=== PATIENT | male | born 1965 | race African-American/Black ===

== ENCOUNTER → 2017-01-01 | Outpatient (CLI) | payer MEDICAID ==
[~2017-01-01] MED LIST: ASPI325T4 PO; CLIN300C3 PO; FOLI-17 PO; HYDR-3307 PO; LOPE1LIQ6 PO; OXYC15TA PO; SENN1TAB7 PO; THIA100T6 PO; TRAZ50TA18; [UNRECOGNIZED DRUG - OTHER]
== END | disposition home or self-care (01) ==
LOC: RAD 09:32
PROVIDERS: ATTEND Internal Medicine Infectious Disease
DX: R05 Cough (principal)
CPT/HCPCS: 71020

== ENCOUNTER 2017-02-20 06:16 | Emergency (ER) | payer MEDICAID ==
[~2017-02-20] VITALS: Ht 190.5 cm; Wt 67.7 kg
[2017-02-20] MEDS ORDERED: KETOROLAC 30 MG/1 ML IM ONE (07:00)
[2017-02-20] MEDS ORDERED: KETOROLAC 30 MG/1 ML ONE (07:20)
[2017-02-20 08:16] VITALS: BP 125/80
== END 2017-02-20 08:18 | disposition home or self-care (01) ==
LOC: ED 07:00
DX: S22.31XA Fracture of one rib, right side, initial encounter for closed fracture (principal); J20.8 Acute bronchitis due to other specified organisms; B96.89 Other specified bacterial agents as the cause of diseases classified elsewhere; W19.XXXA Unspecified fall, initial encounter; Y93.89 Activity, other specified; Y92.89 Other specified places as the place of occurrence of the external cause; Y99.9 Unspecified external cause status
CPT/HCPCS: 71020; 71101; 96372; 99284; J1885

== ENCOUNTER 2019-03-13 07:47 | Emergency (ER) | payer MEDICAID ==
[~2019-03-13] VITALS: Ht 190.5 cm; Wt 60.2 kg
[~2019-03-13 07:47] MED LIST changes: +ASPI325T17 PO; -ASPI325T4 PO; +SENN-177 PO; -SENN1TAB7 PO; -THIA100T6 PO; +THIA100T67 PO; -TRAZ50TA18; +TRAZ50TA66
[2019-03-13] MEDS ORDERED: SODIUM CHLORIDE 0.9% 1,000 ML IV ONE (08:25)
[2019-03-13] MEDS ORDERED: SODIUM CHLORIDE FLUSH 10ML SYR IVF ONE (08:30)
[2019-03-13] MEDS ORDERED: ONDANSETRON 2MG/ML, 2ML IVPush ONE (08:30)
[2019-03-13] MEDS ORDERED: SODIUM CHLORIDE 0.9% 1,000ML IVBOLUS ONE (08:30)
[2019-03-13] MEDS ORDERED: ONDANSETRON 2MG/ML, 2ML ONE (08:44)
--- NOTE | 2019-03-13 09:10 | NUR ---
assumed acre of pt. report from tiffanie MCGREGOR. pt here for chronic N/V/D. pt has recently complted a course of PO vancomycin but reports that sx persist. previous R has attempted IV without success. pt mildly agitated. resting in position of comfort.
--- NOTE | 2019-03-13 09:13 | NUR ---
Pt presents to ED for diarrhea and worsening abd pain. states symptoms present x 1 month. Pt states he was recently dx with c diff. Iso contact plus precautions in place. Report to Kasey MCGREGOR.
--- NOTE | 2019-03-13 09:30 | NUR ---
Iv fluids infusing. pt positioning and warm blankets given for comfort. pt aware that urine and stool sample needed. instruction given regarding sample collection. pt verbalized understanding.
[2019-03-13 09:43] LABS: BASOPHILS # (AUTO) 0.03 x10^3/uL (0-0.1); BASOPHILS % (AUTO) 1 % (0-1); EOSINOPHILS # (AUTO) 0.03 x10^3/uL (0-0.4); EOSINOPHILS % (AUTO) 1 % (1-7); LYMPHOCYTES # (AUTO) 1.19 x10^3/uL (1-3.4); LYMPHOCYTES % (AUTO) 31 % (22-44); MD NO; MEAN CORPUSCULAR HEMOGLOBIN 29.6 pg (27.5-34.5); MEAN CORPUSCULAR HGB CONC 32.3 g/dL (33.2-36.2); MEAN CORPUSCULAR VOLUME 91.6 fL (81-97); MEAN PLATELET VOLUME 8.4 fL (7.4-10.4); MONOCYTES # (AUTO) 0.36 x10^3/uL (0.2-0.8); MONOCYTES % (AUTO) 9 % (2-9); NEUTROPHILS # (AUTO) 2.24 x10^3/uL (1.8-6.8); NEUTROPHILS % (AUTO) 58 % (42-75); PLATELET COUNT 147 x10^3/uL (130-400); RED BLOOD COUNT 4.96 x10^6/uL (4.38-5.82); RED CELL DISTRIBUTION WIDTH 12.3 % (9.4-14.8)
[2019-03-13] MEDS ORDERED: RANI150C PO (09:43)
[2019-03-13] MEDS ORDERED: ACID1TAB7 PO (09:43)
[2019-03-13 09:52] LABS: ALANINE AMINOTRANSFERASE 21 U/L (12-78); ALBUMIN 4.9 g/dL (3.4-5.0); ANION GAP 9 mmol/L (5-15); CALCIUM 9.7 mg/dL (8.5-10.1); CHLORIDE 103 mmol/L (98-107); CREATININE 0.81 mg/dL (0.7-1.3)
[2019-03-13 09:54] LABS: ALKALINE PHOSPHATASE 98 U/L (45-117); BILIRUBIN,TOTAL 0.8 mg/dL (0.2-1.0); TOTAL PROTEIN 9.2 g/dL (6.4-8.2)
--- NOTE | 2019-03-13 10:04 | NUR ---
at bedside for recheck
--- NOTE | 2019-03-13 10:15 | NUR ---
pt to be D/C after completion of IV fluid infusion. pt updated on POC
[2019-03-13 10:17] LABS: ACETONE, SERUM Negative (Negative)
[2019-03-13 11:19] VITALS: BP 111/64
== END 2019-03-13 11:31 | disposition home or self-care (01) ==
LOC: ED 10:03
DX: R19.7 Diarrhea, unspecified (principal); R10.84 Generalized abdominal pain
CPT/HCPCS: 36415; 74022; 80053; 82010; 83690; 85025; 96361; 96374; 99284; J2405; J7030

== ENCOUNTER 2019-06-24 08:14 | Emergency (ER) | payer MEDICAID ==
[~2019-06-24] VITALS: Ht 190.5 cm; Wt 65.8 kg
[~2019-06-24 08:14] MED LIST changes: +ACID1TAB7 PO; -HYDR-3307 PO; +HYDR-36 PO; +RANI150C PO
[2019-06-24 08:21] VITALS: BP 147/96
[2019-06-24] MEDS ORDERED: THIA100T27 PO (08:40)
[2019-06-24] MEDS ORDERED: HYDROcodone/APAP 5/325 TABLET ONE (10:18)
--- NOTE | 2019-06-24 10:22 | NUR ---
PATIENT MEDICATED WITH NORCO 5MG.
[2019-06-24] MEDS ORDERED: HYDROcodone/APAP 5/325 TABLET PO ONE (10:30)
--- NOTE | 2019-06-24 10:53 | NUR ---
Patient given discharge instructions and they have confirmed that they understand the instructions. Patient ambulatory with steady gait.
== END 2019-06-24 10:54 | disposition home or self-care (01) ==
LOC: ED 09:03
DX: S62.366A Nondisplaced fracture of neck of fifth metacarpal bone, right hand, initial encounter for closed fracture (principal); W01.0XXA Fall on same level from slipping, tripping and stumbling without subsequent striking against object, initial encounter; Y93.89 Activity, other specified; Y92.009 Unspecified place in unspecified non-institutional (private) residence as the place of occurrence of the external cause; Y99.8 Other external cause status
CPT/HCPCS: 99283

== ENCOUNTER 2020-10-23 07:42 | Emergency (ER) | payer MEDICAID ==
[~2020-10-23] VITALS: Ht 190.5 cm; Wt 63.2 kg
[~2020-10-23 07:42] MED LIST changes: -FOLI-17 PO; +FOLI1TAB32 PO; +HYDR-3248 PO; -HYDR-36 PO; -OXYC15TA PO; +OXYC15TA3 PO; +THIA100T27 PO
--- NOTE | 2020-10-23 07:49 | NUR ---
prescription eyeglass maker: EKG completed in triage
--- NOTE | 2020-10-23 07:50 | NUR ---
triage note: pt now reports that he has been expieriencing night sweats for the past several days, has been seen here for them and says that "they can't figure out what it is"
--- NOTE | 2020-10-23 07:52 | NUR ---
triage NR: pt reports a hx of osteomyelitis
--- NOTE | 2020-10-23 08:00 | NUR ---
Late entry summary note: Pt presents to the ER with limited LUE movement, sensation intact. Pt is gaurded from L neck and shoulder pain. States he used a Q-tip in his ear approx 1 week ago and "that's the only thing he can think of that caused this." Pt has hx of osteomylitis in his L knee, but states he doesn't know how he got it, "they found it when I had my knee replacement." Connected to all monitors, positioned for comfort.
[2020-10-23] MEDS ORDERED: SODIUM CHLORIDE 0.9% 1,000ML IVBOLUS ONE (09:00)
[2020-10-23] MEDS ORDERED: ONDANSETRON 2MG/ML, 2ML IVPush ONE (09:00)
[2020-10-23 09:24] LABS: BASOPHILS % (AUTO) 1 % (0-1); EOSINOPHILS % (AUTO) 1 % (1-7); LYMPHOCYTES % (AUTO) 26 % (22-44); MEAN CORPUSCULAR HEMOGLOBIN 29.5 pg (27.5-34.5); MEAN CORPUSCULAR HGB CONC 34.2 g/dL (33.2-36.2); MEAN PLATELET VOLUME 8.8 fL (7.4-10.4); MONOCYTES % (AUTO) 14 % (2-9); NEUTROPHILS % (AUTO) 59 % (42-75); PLATELET COUNT 221 x10^3/uL (130-400); RED BLOOD COUNT 4.74 x10^6/uL (4.38-5.82); RED CELL DISTRIBUTION WIDTH 14.2 % (9.4-14.8)
[2020-10-23 09:26] LABS: MD NO
[2020-10-23] MEDS ORDERED: MORPHINE SULFATE 4 MG/ML, 1ML ONE ×2 (09:26→11:19)
[2020-10-23] MEDS ORDERED: ONDANSETRON 2MG/ML, 2ML ONE (09:26)
[2020-10-23] MEDS: MORPHINE SULFATE 4 MG/ML, 1ML IVPush PRN ×2 (09:28→11:22)
[2020-10-23 09:32] LABS: ALBUMIN 4.3 g/dL (3.4-5.0); ANION GAP 11 mmol/L (5-15); CALCIUM 9.8 mg/dL (8.5-10.1); CHLORIDE 98 mmol/L (98-107); CREATININE 0.75 mg/dL (0.7-1.3)
[2020-10-23 09:36] LABS: TROPONIN I < 0.015 ng/mL (0.000-0.045)
--- NOTE | 2020-10-23 09:49 | NUR ---
Pt to imaging.
--- NOTE | 2020-10-23 10:56 | NUR ---
Per CT, IV not sufficient for imaging. Image not complete. Will look for new IV.
[2020-10-23] MEDS ORDERED: POTASSIUM CHLORIDE 20 MEQ TAB.ER.PRT PO ONE (11:00)
[2020-10-23] MEDS ORDERED: MAGNESIUM OXIDE 400 MG TABLET PO SCH (11:00)
[2020-10-23] MEDS ORDERED: POTASSIUM CHLORIDE 20 MEQ TAB.ER.PRT ONE (11:27)
[2020-10-23] MEDS ORDERED: MAGNESIUM OXIDE 400 MG TABLET ONE (11:27)
[2020-10-23] MEDS ORDERED: LORazepam 2 MG/ML, 1ML ONE ×2 (11:28→13:21)
[2020-10-23] MEDS ORDERED: LORazepam 2 MG/ML, 1ML IVPush ONE ×2 (11:30→13:00)
[2020-10-23] MEDS ORDERED: OMNIPAQUE 350 MG/ML, 75ML BOTTLE ONE (11:53)
--- NOTE | 2020-10-23 12:42 | NUR ---
BREAK RN: PT AMBULATED TO BATHROOM, STEADY GAIT. RTD TO ROOM W/O INCIDENT AND ALL MONITORS IN PLACE. PT PAIN CONTINUES, DISCUSSED WITH DR SANDERS. NEW ORDERS PENDING. PILLOWS USED TO SUPPORT NECK AND WARM BLANKETS TO AFFECTED AREA WITH SOME RELIEF. CALL LIGHT W/I REACH
[2020-10-23] MEDS ORDERED: methylPREDNISolone SOD SUCC 125 MG/2 ML ONE (13:23)
[2020-10-23] MEDS ORDERED: methylPREDNISolone SOD SUCC 125 MG/2 ML IVPush ONE (13:30)
[2020-10-23 14:28] VITALS: BP 118/56
== END 2020-10-23 14:41 | disposition home or self-care (01) ==
LOC: ED 10:15
DX: S16.1XXA Strain of muscle, fascia and tendon at neck level, initial encounter (principal); R00.0 Tachycardia, unspecified; H92.02 Otalgia, left ear; F17.210 Nicotine dependence, cigarettes, uncomplicated; X58.XXXA Exposure to other specified factors, initial encounter; Y93.89 Activity, other specified; Y92.89 Other specified places as the place of occurrence of the external cause; Y99.8 Other external cause status
CPT/HCPCS: 36415; 70498; 71045; 72050; 80048; 82040; 83880; 84484; 85025; 93005; 96361; 96374; 96375; 96376; 99285; J2060; J2270; J2405; J2930; J7030; Q9967